=== PATIENT | female | born 1985 | race Caucasian/White ===

== ENCOUNTER 2018-03-24 21:54 | Emergency (ER) | payer OTHER ==
[~2018-03-24] VITALS: Ht 162.6 cm; Wt 74.7 kg
[2018-03-24 21:55] VITALS: BP 163/110; PULSE 80; TEMP 36.7; O2SAT 99; Ht 162.6 cm; Wt 74.7 kg
--- NOTE | 2018-03-24 22:13 | EMERGENCY ROOM VISIT NOTE ---
ED Visit Note First contact with patient: 21:58 CHIEF COMPLAINT: Tick bite HISTORY OF PRESENT ILLNESS: This 32 yo patient presents to the emergency department after they noticed a tick embedded lower leg. The patient did try to remove it. The head is still intact. It had been on for less than 6 hours. The patient's tetanus shot is up-to-date. The patient denies any rashes, fevers, chills, or lightheadedness. The patient denies joint tenderness. REVIEW OF SYSTEMS: A 6 system review of systems was completed with positives and pertinent negatives listed in the HPI. ALLERGIES: Piperacillin, reviewed MEDICATIONS: None PMH: None SOCIAL HISTORY: No drug use PHYSICAL EXAM: Vital Signs: Reviewed Nurse's notes, vital signs stable. GENERAL : Pleasant female, in no acute distress, well-developed, well-nourished. SKIN: There is part of a tick embedded in the patient's lower leg. There is a small zone of inflammation and eccymosis around the spot where the tick is. The skin is otherwise clear. NEUROLOGICAL: Alert and oriented to person place and time, cooperative. Sensory and motor functions grossly intact. ED COURSE: I examined the patient. The area was cleansed. The head of the tick was removed using 18-gauge needle and forceps under magnification. The whole head was removed. There was no bleeding. The patient tolerated the procedure well. The area was dressed with bacitracin and a bandage. Patient was counseled on Lyme's disease. The patient was discharged home in good condition. DIAGNOSIS: Tick bite and removal DISCHARGE INSTRUCTIONS & TREATMENT: Watch the area for signs of infection. Keep bacitracin on it for 2 days. Follow up with family doctor if he develops symptoms of a target rash, fever, chills, lightheadedness, or joint pain. Allergies Coded Allergies: Piperacillin (Verified Allergy, Intermediate, Hives, 03/24/18) Tazobactam (Verified Allergy, Intermediate, Hives, 03/24/18) Vital Signs Date Time Temp Pulse Resp B/P (MAP) Pulse Ox O2 Delivery O2 Flow Rate FiO2 03/24/18 21:55 36.7 80 16 163/110 99 Room Air Departure Information Patient Instructions [facility]
== END 2018-03-24 22:20 | disposition home or self-care (01) ==
LOC: C.EDB 21:56 → C.EDD 22:20
DX: T14.8XXA Other injury of unspecified body region, initial encounter (principal); W57.XXXA Bitten or stung by nonvenomous insect and other nonvenomous arthropods, initial encounter; Z88.8 Allergy status to other drugs, medicaments and biological substances

== ENCOUNTER 2018-03-30 12:44 | Emergency (ER) | payer OTHER ==
[~2018-03-30] VITALS: Ht 162.6 cm; Wt 75.5 kg
[2018-03-30 12:46] VITALS: TEMP 36.7; Ht 162.6 cm; Wt 75.5 kg
[2018-03-30] MEDS ORDERED: AMOXICILLIN/CLAVULANATE TAB 875 MG TAB PO STA (13:03)
[2018-03-30] MEDS ORDERED: LIDOCAINE 1% BUFFERED INJ 5 ML VIAL INFIL STA (13:03)
[2018-03-30] MEDS ORDERED: AMOX875T PO (14:27)
--- NOTE | 2018-03-30 14:28 | EMERGENCY ROOM VISIT NOTE ---
ED Visit Note First contact with patient: 12:49 CHIEF COMPLAINT: Dog bite, left thigh HISTORY OF PRESENT ILLNESS: This 32-year-old female patient presents to the emergency department, ambulatory, approximately 1 hour after receiving a dog bite to her left thigh. The patient states she works at a [email or web address] and was breaking up a dog fight when she got bitten. 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 The bleeding has stopped. Denies weakness or numbness of the extremity. The patient rates the pain as sharp and 5/10. The patient denies any other injuries. The patient' s Tetanus shot is up to date. REVIEW OF SYSTEMS: A 6 system review of systems was completed with positives and pertinent negatives listed in the HPI. ALLERGIES: Piperacillin, tazobactam. The patient reports successfully taking Augmentin, amoxicillin, and penicillins since this allergy. MEDICATIONS: None PMH: None SOCIAL HISTORY: The patient lives locally with family. She denies drug, alcohol , tobacco use PHYSICAL EXAM: Vital Signs: Reviewed Nurse's notes, vital signs stable. GENERAL : This is a 32-year-old white female, in no acute distress, well-developed, well -nourished. SKIN: Multiple tattoos on the leg there is a 0.5 cm long laceration on the anterior aspect of the left thigh. The edges gape apart with traction. There is no foreign material in the wound and it looks clean. There is minimal active bleeding. No deep structures such as tendons, bones, or significant blood vessels are seen in the base of the wound. Normal strength and movement of the left lower extremity. There are more superficial wounds superior to the deep wound on the anterior left thigh. These are not gaping, and there is no active bleeding. Capillary refill less than 2 seconds. Normal sensation to light and sharp touch. EMERGENCY DEPARTMENT COURSE: I examined the patient. [facility] bite paperwork completed. The patient was given her first dose of antibiotics while here in the emergency department. A prescription was sent to the pharmacy. Though the open wound is a bite, it is gaping and within a tattoo. I feel there will be a better cosmetic outcome with a suture to loosely close the wound. Verbal consent was obtained to perform the procedure. Using sterile technique the wound was cleansed with Betadine. The area was sterilely draped. 1 ml of 1% buffered lidocaine was used to anesthetize the laceration on the left thigh. Once the patient was anesthetized, the wound was copiously irrigated under pressure with sterile saline. The wound was explored and was as described above. The laceration was repaired using 1 simple interrupted 4-0 nylon suture with the wound edges being well approximated. The patient tolerated the procedure well. Hemostasis was achieved. The area was cleaned with sterile saline and dressed with bacitracin ointment and bandage. The patient was discharged home in good condition. I attest that I have personally reviewed the patient's current medication list. Blood Pressure Screening: Patient was found to have a slightly elevated blood pressure due to circumstances. I do not believe that the patient requires hypertension monitoring. Differential diagnosis includes laceration, contusion, fracture, sprain/strain, tendon or ligament injury, neurovascular compromise, foreign body, assault, bite , rabies exposure, infection, and others DIAGNOSIS: Dog bite, left thigh laceration The chart was completed utilizing [employer] Speech voice recognition software. Grammatical errors, random word insertions, pronoun errors, and incomplete sentences are an occasional consequence of this system due to software limitations, ambient noise, and hardware issues. Any formal questions or concerns about the content, text, or information contained within the body of this dictation should be directly addressed to the provider for clarification. Current/Historical Medications Scheduled Amoxicillin & Pot Clavulanate (Augmentin 875-125 mg), 1 TAB PO BID Allergies Coded Allergies: Piperacillin (Verified Allergy, Intermediate, Hives, 03/30/18) Tazobactam (Verified Allergy, Intermediate, Hives, 03/30/18) Vital Signs Date Time Temp Pulse Resp B/P (MAP) Pulse Ox O2 Delivery O2 Flow Rate FiO2 03/30/18 14:42 74 16 145/80 98 03/30/18 12:46 36.7 83 18 157/107 99 Room Air Medications Administered Medications (Trade) Dose Ordered Sig/Naomie Route Start Time Stop Time Status Last Admin Dose Admin Amoxicillin/ Clavulanate Potassium (Augmentin Tab) 875 mg ONE STAT PO 03/30/18 13:03 03/30/18 13:05 DC 03/30/18 13:11 875 MG Departure Information Impression Primary Impression: Dog bite Dispostion Home / Self-Care Condition GOOD Prescriptions Amoxicillin & Pot Clavulanate (Augmentin 875-125 mg) 1 Tab Tab 1 TAB PO BID for 7 Days, #14 TAB Prov: Jen Dumont PA-C 03/30/18 Referrals No Doctor, Assigned (PCP) Patient Instructions ED Bite Dog, ED Laceration Ext Sutr Stap Tape, [facility] Additional Instructions You were seen in the emergency department today for a dog bite. Amoxicillin Clavulanate (Augmentin) 875mg: Take one pill twice daily for 7 days to prevent infection. All antibiotics can cause diarrhea. If this occurs and you feel worse or it does not resolve in 1-2 days follow up with your doctor or return to the Emergency Department as this could be signs of serious underlying problems. Any medication can cause an allergic reaction, stop the pills immediately and return to the ER for rash, hives, breathing difficulties, or swelling. You have received 1 sutures on your left thigh. These sutures are NOT dissolvable and WILL need to be removed by a health care provider in 7-10 days. You can return to the Emergency Department or contact your Primary Care Provider to have the sutures removed. Proper wound care is essential for adequate wound healing and infection prevention. You can shower and clean the wound with soap and water. Do not scour over the wound, pat dry with a towel. Do not submerse the wound (i.e. bathe or dish wash) until the sutures have been removed. You can use an antibiotic ointment with a dressing over the wound for the next 3-4 days. After this time you may leave the wound dry and open to the air. If crust develops over the wound you can use a Q-tip to apply a 1:1 peroxide:water solution to clean the wound. Look for signs of infection of the wound including: increased pain, swelling, foul discharge, streaking, or increased temperature. If any of these are noticed you should return to the Emergency Department for further assessment and treatment. As with any laceration you may have received nerve damage to the surrounding tissues. This damage may or may not be permanent. You should keep the area covered with sunscreen for the first 6 months to 1 year when at risk for exposure to help minimize scarring. You can also use scar reducing creams or Vitamin E oil to help minimize scarring. For pain control, you can use the following [id number] medicines (if >12 yo): Ibuprofen(Motrin, Advil) may be used for fever or pain. Use 600mg every six hours as needed. Take with food. Avoid using more than 2400mg in a 24 hour period. Do not use 2400mg per day for more than three consecutive days without physician direction. Prolonged inappropriate use can lead to stomach upset or ulcers. (AND/OR) Acetaminophen(Tylenol) may be used for fever or pain. Use 1000mg every six hours as needed. Avoid using more than 3000mg in a 24 hour period. Return to the emergency department if your symptoms worsen despite treatment course outlined above. Problem Qualifiers Primary Impression: Dog bite Encounter type: initial encounter Qualified Codes: W54.0XXA - Bitten by dog , initial encounter
[2018-03-30 14:42] VITALS: BP 145/80; PULSE 74; O2SAT 98
== END 2018-03-30 14:43 | disposition home or self-care (01) ==
LOC: C.EDB 12:45 → C.EDD 14:43
DX: S71.152A Open bite, left thigh, initial encounter (principal); W54.0XXA Bitten by dog, initial encounter; Y99.0 Civilian activity done for income or pay; Y92.89 Other specified places as the place of occurrence of the external cause; Z88.0 Allergy status to penicillin; Z88.8 Allergy status to other drugs, medicaments and biological substances